=== PATIENT | male | born 1950 | race African-American/Black ===

== ENCOUNTER 2018-02-04 18:42 | Inpatient (IN) ==
[2018-02-04] MEDS ORDERED: ALBUTEROL/IPRATROPIUM 3 ML NEB RESP TX PRN (22:33)
[2018-02-04] MEDS ORDERED: LACTULOSE 20 GM/30 ML UDCUP PO PRN (22:33)
[2018-02-04] MEDS ORDERED: ONDANSETRON 4 MG/2 ML VIAL IV PRN (22:33)
[2018-02-04] MEDS ORDERED: ACETAMINOPHEN 325 MG TABLET PO PRN (22:33)
[2018-02-04] MEDS ORDERED: ZALEPLON 5 MG CAPSULE PO PRN (22:33)
[2018-02-04] MEDS ORDERED: DEXTROSE 50% 25 GM/50 ML VIAL IV PRN (22:33)
[2018-02-04] MEDS ORDERED: MORPHINE 4 MG/1 ML VIAL IV PRN (22:33)
[2018-02-04] MEDS ORDERED: GLUCAGON 1 MG VIAL IM PRN (22:33)
[2018-02-04] MEDS ORDERED: diphenhydrAMINE CAP 25 MG CAPSULE PO PRN (22:33)
[2018-02-04] MEDS ORDERED: SODIUM POLYSTYRENE SULFATE 15 GM/60 ML BOTTLE PO ONE (23:30)
[2018-02-04 23:54] LABS: Basophils # 0.1 10*3/uL (0.0-0.2); Basophils % 0.5 % (0.0-0.8); Eosinophils # 0.2 10*3/uL (0.0-0.87); Eosinophils % 1.8 % (0.00-10.9); Hematocrit 31.1 VOL% (42.0-52.0); Hemoglobin 9.8 GM/DL (14.0-18.0); Immature Granulocytes % 0.3 %; Immature Granulocytes Absolute 0.04 #; Lymphocytes # 1.6 10*3/uL (1.4-4.0); Mean Corpuscular HGB Conc 31.5 GM/DL (32-36); Mean Corpuscular Hemoglobin 29 PG (27-34); Mean Corpuscular Volume 91.5 FL (87-102); Monocytes # 0.9 10*3/uL (0.11-0.8); Monocytes % 7.6 % (1.7-12.7); Neutrophils # 8.8 10*3/uL (1.4-7.4); Neutrophils % 75.8 % (38.7-73.9); Platelet Count 306 T/CUMM (130-400); Red Cell Distribution Width 13.1 % (9.3-17.3); White Blood Count 11.7 T/CUMM (4-12)
[2018-02-05 00:15] LABS: Albumin 3.1 G/DL (3.4-5.0); Bilirubin,Total 0.5 MG/DL (0.2-1.0); Calcium 8.5 MG/DL (8.5-10.1); Total Protein 8.2 G/DL (6.4-8.3)
[2018-02-05 00:16] LABS: Osmolality,Calculated 320.8 MOS/KG (273-304); Potassium 5.2 MMOL/L (3.5-5.1)
[2018-02-05 00:17] LABS: Risk Ratio 3.42; VLDL CHOLESTEROL 14.6 MG/DL
[2018-02-05 00:18] LABS: Troponin I 0.027 NG/ML (0.00-0.045)
[2018-02-05 04:16] LABS: Basophils % 0.3 % (0.0-0.8); Eosinophils # 0.1 10*3/uL (0.0-0.87); Hemoglobin 8.8 GM/DL (14.0-18.0); Immature Granulocytes % 0.3 %; Immature Granulocytes Absolute 0.04 #; Lymphocytes # 0.8 10*3/uL (1.4-4.0); Lymphocytes % 7.1 % (21.2-54.2); Mean Corpuscular HGB Conc 31.4 GM/DL (32-36); Mean Corpuscular Hemoglobin 29 PG (27-34); Mean Corpuscular Volume 91.8 FL (87-102); Mean Platelet Volume 10.1 FL (9.6-12.0); Monocytes # 0.8 10*3/uL (0.11-0.8); Neutrophils # 9.6 10*3/uL (1.4-7.4); Neutrophils % 84.3 % (38.7-73.9); Platelet Count 278 T/CUMM (130-400); Red Blood Count 3.05 MC/CUMM (3.8-5.5); Red Cell Distribution Width 13.2 % (9.3-17.3); White Blood Count 11.5 T/CUMM (4-12)
[2018-02-05 04:42] LABS: Bilirubin,Total 0.7 MG/DL (0.2-1.0); Calcium 8.5 MG/DL (8.5-10.1); Potassium 4.7 MMOL/L (3.5-5.1); Total Protein 7.5 G/DL (6.4-8.3)
[2018-02-05] MEDS ORDERED: LEVOFLOXACIN INJ 750 MG in PREMIX 1 EACH IV SCH ×2 (05:00)
[2018-02-05] MEDS ORDERED: LEVOFLOXACIN INJ 750 MG in PREMIX 1 EACH IV ONE (05:30)
[2018-02-05] MEDS: INSULIN REGULAR 100 UNIT/ML SUBCUT SCH ×4 (05:38→17:55)
[2018-02-05 07:32] LABS: Troponin I 0.038 NG/ML (0.00-0.045)
[2018-02-05] MEDS: PANTOPRAZOLE 40 MG TABLET PO SCH (09:11)
[2018-02-05 09:15] LABS: Hematocrit 30.2 VOL% (42.0-52.0); Hemoglobin 9.7 GM/DL (14.0-18.0)
[2018-02-05 11:50] LABS: Hematocrit 27.7 VOL% (42.0-52.0); Hemoglobin 8.9 GM/DL (14.0-18.0)
[2018-02-05 14:38] LABS: Troponin I 0.029 NG/ML (0.00-0.045)
[2018-02-05 17:22] LABS: Basophils # 0.1 10*3/uL (0.0-0.2); Basophils % 0.2 % (0.0-0.8); Hematocrit 25.8 VOL% (42.0-52.0); Hemoglobin 8.2 GM/DL (14.0-18.0); Immature Granulocytes % 0.6 %; Immature Granulocytes Absolute 0.12 #; Lymphocytes # 0.4 10*3/uL (1.4-4.0); Lymphocytes % 1.7 % (21.2-54.2); Mean Corpuscular HGB Conc 31.8 GM/DL (32-36); Mean Corpuscular Hemoglobin 29 PG (27-34); Mean Corpuscular Volume 91.5 FL (87-102); Mean Platelet Volume 10.3 FL (9.6-12.0); Monocytes # 1.3 10*3/uL (0.11-0.8); Monocytes % 6.5 % (1.7-12.7); Neutrophils # 18.6 10*3/uL (1.4-7.4); Platelet Count 246 T/CUMM (130-400); Red Blood Count 2.82 MC/CUMM (3.8-5.5); Red Cell Distribution Width 13.1 % (9.3-17.3); White Blood Count 20.5 T/CUMM (4-12)
[2018-02-05 17:56] LABS: Anisocytosis 1+; Band Neutrophils 2 % (0-10); Helmet Cells Few; Hypochromasia Slight; Lymphocytes 3 % (20-55); Segmented Neutrophils 89 % (50-85); Total Cells Counted 100
[2018-02-05 17:57] LABS: Giant Platelets Few; Platelet Estimate Adequate
[2018-02-06 00:15] LABS: Apearance,Urine Slightly Hazy (Clear); Bacteria,Urine Many /HPF (Few); Bilirubin,Urine Negative (Negative); Blood, Urine Moderate mg/dL (Negative); Glucose,Urine (UA) 50 mg/dL (Negative); Ketones,Urine Negative (Negative); Nitrite,Urine Negative (Negative); Protein,Urine 100 MG/DL; RBC,Urine 1894 /HPF (0-4); Urine Color Red (Yellow); Urine Urobilinogen < 2.0 EU/DL (0.2-1.0); WBC,Urine 528 /HPF (0-6)
[2018-02-06] MEDS: INSULIN REGULAR 100 UNIT/ML SUBCUT SCH ×4 (00:50→17:40)
[2018-02-06 06:26] LABS: Basophils % 0.2 % (0.0-0.8); Eosinophils # 0.2 10*3/uL (0.0-0.87); Eosinophils % 0.8 % (0.00-10.9); Hematocrit 23.6 VOL% (42.0-52.0); Immature Granulocytes % 0.9 %; Immature Granulocytes Absolute 0.16 #; Lymphocytes # 1.9 10*3/uL (1.4-4.0); Mean Corpuscular HGB Conc 31.4 GM/DL (32-36); Mean Corpuscular Hemoglobin 30 PG (27-34); Mean Platelet Volume 10.5 FL (9.6-12.0); Monocytes # 1.4 10*3/uL (0.11-0.8); Monocytes % 7.7 % (1.7-12.7); Neutrophils % 80.4 % (38.7-73.9); Platelet Count 237 T/CUMM (130-400); Red Blood Count 2.51 MC/CUMM (3.8-5.5); Red Cell Distribution Width 13.2 % (9.3-17.3); White Blood Count 18.6 T/CUMM (4-12)
[2018-02-06 06:39] LABS: Hemoglobin 7.4 GM/DL (14.0-18.0)
[2018-02-06 06:49] LABS: Eosinophils 1 % (0-10); Hypochromasia 1+; Lymphocytes 4 % (20-55); Platelet Estimate Adequate; Segmented Neutrophils 88 % (50-85); Total Cells Counted 100
[2018-02-06 08:17] LABS: Calcium 8.1 MG/DL (8.5-10.1); Potassium 4.1 MMOL/L (3.5-5.1)
[2018-02-06] MEDS: PANTOPRAZOLE 40 MG TABLET PO SCH (08:40)
[2018-02-06] MEDS: NEBIVOLOL 10 MG TABLET PO SCH (08:40)
[2018-02-06] MEDS ORDERED: SODIUM CHLORIDE 0.9% 1,000 ML IV PRN (12:54)
[2018-02-06] MEDS ORDERED: glipiZIDE 10 MG TABLET PO SCH (16:30)
[2018-02-06] MEDS: amLODIPine 5 MG TABLET PO SCH (22:26)
[2018-02-06] MEDS: PRAVASTATIN 40 MG TABLET PO SCH (22:26)
[2018-02-06] MEDS: ASPIRIN EC 81 MG TABLET PO SCH (22:27)
[2018-02-07] MEDS: INSULIN REGULAR 100 UNIT/ML SUBCUT SCH ×4 (02:17→18:26)
[2018-02-07 05:14] LABS: Basophils % 0.3 % (0.0-0.8); Eosinophils # 0.4 10*3/uL (0.0-0.87); Hematocrit 28.3 VOL% (42.0-52.0); Immature Granulocytes % 0.6 %; Immature Granulocytes Absolute 0.08 #; Lymphocytes # 1.5 10*3/uL (1.4-4.0); Mean Corpuscular HGB Conc 31.8 GM/DL (32-36); Mean Corpuscular Hemoglobin 29 PG (27-34); Mean Corpuscular Volume 90.1 FL (87-102); Monocytes # 1.2 10*3/uL (0.11-0.8); Monocytes % 8.8 % (1.7-12.7); Neutrophils # 10.3 10*3/uL (1.4-7.4); Neutrophils % 76.3 % (38.7-73.9); Platelet Count 213 T/CUMM (130-400); Red Blood Count 3.14 MC/CUMM (3.8-5.5); Red Cell Distribution Width 14.4 % (9.3-17.3); White Blood Count 13.5 T/CUMM (4-12)
[2018-02-07 05:32] LABS: Calcium 8.2 MG/DL (8.5-10.1); Osmolality,Calculated 299.5 MOS/KG (273-304); Potassium 3.9 MMOL/L (3.5-5.1)
[2018-02-07] MEDS ORDERED: cefTRIAXone 1,000 MG in SYRINGE 1 EACH IV ONE (07:00)
[2018-02-07] MEDS: PANTOPRAZOLE 40 MG TABLET PO SCH ×2 (07:21→08:53)
[2018-02-07] MEDS: amLODIPine 5 MG TABLET PO SCH ×3 (07:21→20:38)
[2018-02-07] MEDS: NEBIVOLOL 10 MG TABLET PO SCH ×2 (07:21→08:53)
[2018-02-07] MEDS ORDERED: LACTATED RINGERS 1,000 ML IV SCH (08:00)
[2018-02-07] MEDS: LEVOFLOXACIN INJ 500 MG in PREMIX 1 EACH IV SCH (08:53)
[2018-02-07] MEDS ORDERED: fentaNYL 100 MCG/2 ML VIAL ONE (10:01)
[2018-02-07] MEDS ORDERED: PROPOFOL 200 MG/20 ML VIAL IV ONE (10:01)
[2018-02-07] MEDS ORDERED: ETOMIDATE 40 MG/20 ML VIAL IV ONE (10:02)
[2018-02-07] MEDS ORDERED: ONDANSETRON 4 MG/2 ML VIAL ONE (10:02)
[2018-02-07] MEDS ORDERED: MIDAZOLAM 2 MG/2 ML VIAL ONE (10:02)
[2018-02-07] MEDS: INSULIN GLARGINE 100 UNIT/ML SUBCUT SCH (20:37)
[2018-02-07] MEDS: PRAVASTATIN 40 MG TABLET PO SCH (20:38)
[2018-02-07] MEDS: ASPIRIN EC 81 MG TABLET PO SCH (20:38)
[2018-02-08] MEDS: INSULIN REGULAR 100 UNIT/ML SUBCUT SCH ×4 (00:41→18:36)
[2018-02-08 05:34] LABS: Basophils % 0.2 % (0.0-0.8); Eosinophils # 0.3 10*3/uL (0.0-0.87); Eosinophils % 2.1 % (0.00-10.9); Hematocrit 28.2 VOL% (42.0-52.0); Hemoglobin 8.8 GM/DL (14.0-18.0); Immature Granulocytes % 0.6 %; Immature Granulocytes Absolute 0.08 #; Lymphocytes # 1.6 10*3/uL (1.4-4.0); Lymphocytes % 11.3 % (21.2-54.2); Mean Corpuscular HGB Conc 31.2 GM/DL (32-36); Mean Corpuscular Hemoglobin 28 PG (27-34); Mean Corpuscular Volume 89.5 FL (87-102); Mean Platelet Volume 10.3 FL (9.6-12.0); Monocytes # 1.4 10*3/uL (0.11-0.8); Monocytes % 10.4 % (1.7-12.7); Neutrophils # 10.4 10*3/uL (1.4-7.4); Neutrophils % 75.4 % (38.7-73.9); Platelet Count 237 T/CUMM (130-400); Red Blood Count 3.15 MC/CUMM (3.8-5.5); Red Cell Distribution Width 13.8 % (9.3-17.3); White Blood Count 13.8 T/CUMM (4-12)
[2018-02-08 05:49] LABS: Calcium 7.8 MG/DL (8.5-10.1); Osmolality,Calculated 288.7 MOS/KG (273-304); Potassium 3.6 MMOL/L (3.5-5.1)
[2018-02-08] MEDS: amLODIPine 5 MG TABLET PO SCH ×2 (09:25→20:33)
[2018-02-08] MEDS: NEBIVOLOL 10 MG TABLET PO SCH (09:25)
[2018-02-08] MEDS: PANTOPRAZOLE 40 MG TABLET PO SCH (09:25)
[2018-02-08] MEDS: INSULIN GLARGINE 100 UNIT/ML SUBCUT SCH (20:33)
[2018-02-08] MEDS: GABAPENTIN 100 MG CAPSULE PO SCH (20:33)
[2018-02-08] MEDS: ASPIRIN EC 81 MG TABLET PO SCH (20:33)
[2018-02-08] MEDS: PRAVASTATIN 40 MG TABLET PO SCH (20:33)
[2018-02-09] MEDS: INSULIN REGULAR 100 UNIT/ML SUBCUT SCH ×4 (00:34→17:07)
[2018-02-09 04:57] LABS: Basophils # 0.1 10*3/uL (0.0-0.2); Basophils % 0.4 % (0.0-0.8); Eosinophils # 0.6 10*3/uL (0.0-0.87); Eosinophils % 4.3 % (0.00-10.9); Hematocrit 27.7 VOL% (42.0-52.0); Hemoglobin 8.7 GM/DL (14.0-18.0); Immature Granulocytes % 0.5 %; Immature Granulocytes Absolute 0.06 #; Lymphocytes % 15.9 % (21.2-54.2); Mean Corpuscular HGB Conc 31.4 GM/DL (32-36); Mean Corpuscular Hemoglobin 29 PG (27-34); Mean Corpuscular Volume 90.8 FL (87-102); Mean Platelet Volume 10.2 FL (9.6-12.0); Monocytes # 1.6 10*3/uL (0.11-0.8); Monocytes % 12.1 % (1.7-12.7); Neutrophils # 8.6 10*3/uL (1.4-7.4); Neutrophils % 66.8 % (38.7-73.9); Platelet Count 239 T/CUMM (130-400); Red Blood Count 3.05 MC/CUMM (3.8-5.5); Red Cell Distribution Width 13.6 % (9.3-17.3); White Blood Count 12.8 T/CUMM (4-12)
[2018-02-09 05:25] LABS: Calcium 7.7 MG/DL (8.5-10.1); Osmolality,Calculated 289.4 MOS/KG (273-304); Potassium 3.9 MMOL/L (3.5-5.1)
[2018-02-09] MEDS: amLODIPine 5 MG TABLET PO SCH ×2 (09:52→21:39)
[2018-02-09] MEDS: NEBIVOLOL 10 MG TABLET PO SCH (09:52)
[2018-02-09] MEDS: PANTOPRAZOLE 40 MG TABLET PO SCH (09:52)
[2018-02-09] MEDS: LEVOFLOXACIN INJ 500 MG in PREMIX 1 EACH IV SCH (09:52)
[2018-02-09] MEDS: GABAPENTIN 100 MG CAPSULE PO SCH (21:38)
[2018-02-09] MEDS: INSULIN GLARGINE 100 UNIT/ML SUBCUT SCH (21:39)
[2018-02-09] MEDS: PRAVASTATIN 40 MG TABLET PO SCH (21:39)
[2018-02-09] MEDS: ASPIRIN EC 81 MG TABLET PO SCH (21:39)
[2018-02-10] MEDS: INSULIN REGULAR 100 UNIT/ML SUBCUT SCH ×4 (00:31→17:02)
[2018-02-10 05:24] LABS: Basophils % 0.3 % (0.0-0.8); Eosinophils # 0.5 10*3/uL (0.0-0.87); Eosinophils % 4.4 % (0.00-10.9); Hematocrit 26.9 VOL% (42.0-52.0); Hemoglobin 8.4 GM/DL (14.0-18.0); Immature Granulocytes % 0.6 %; Immature Granulocytes Absolute 0.07 #; Lymphocytes # 1.8 10*3/uL (1.4-4.0); Lymphocytes % 14.3 % (21.2-54.2); Mean Corpuscular HGB Conc 31.2 GM/DL (32-36); Mean Corpuscular Hemoglobin 28 PG (27-34); Mean Platelet Volume 10.2 FL (9.6-12.0); Monocytes # 1.6 10*3/uL (0.11-0.8); Neutrophils # 8.3 10*3/uL (1.4-7.4); Neutrophils % 67.4 % (38.7-73.9); Platelet Count 244 T/CUMM (130-400); Red Blood Count 2.99 MC/CUMM (3.8-5.5); Red Cell Distribution Width 13.2 % (9.3-17.3); White Blood Count 12.3 T/CUMM (4-12)
[2018-02-10 05:38] LABS: Calcium 8.1 MG/DL (8.5-10.1); Osmolality,Calculated 285.7 MOS/KG (273-304); Potassium 4.2 MMOL/L (3.5-5.1)
[2018-02-10] MEDS: amLODIPine 5 MG TABLET PO SCH ×2 (08:43→20:55)
[2018-02-10] MEDS: PANTOPRAZOLE 40 MG TABLET PO SCH (08:43)
[2018-02-10] MEDS: NEBIVOLOL 10 MG TABLET PO SCH (08:43)
[2018-02-10] MEDS: PRAVASTATIN 40 MG TABLET PO SCH (20:53)
[2018-02-10] MEDS: GABAPENTIN 100 MG CAPSULE PO SCH (20:53)
[2018-02-10] MEDS: ASPIRIN EC 81 MG TABLET PO SCH (20:55)
[2018-02-10] MEDS: INSULIN GLARGINE 100 UNIT/ML SUBCUT SCH (20:56)
[2018-02-11] MEDS: INSULIN REGULAR 100 UNIT/ML SUBCUT SCH ×4 (00:44→18:10)
[2018-02-11 04:33] LABS: Basophils % 0.4 % (0.0-0.8); Eosinophils # 0.5 10*3/uL (0.0-0.87); Eosinophils % 4.7 % (0.00-10.9); Hematocrit 27.4 VOL% (42.0-52.0); Hemoglobin 8.8 GM/DL (14.0-18.0); Immature Granulocytes % 0.6 %; Immature Granulocytes Absolute 0.06 #; Lymphocytes # 1.6 10*3/uL (1.4-4.0); Lymphocytes % 15.8 % (21.2-54.2); Mean Corpuscular HGB Conc 32.1 GM/DL (32-36); Mean Corpuscular Hemoglobin 29 PG (27-34); Mean Corpuscular Volume 88.7 FL (87-102); Monocytes # 1.3 10*3/uL (0.11-0.8); Monocytes % 12.7 % (1.7-12.7); Neutrophils # 6.5 10*3/uL (1.4-7.4); Neutrophils % 65.8 % (38.7-73.9); Platelet Count 272 T/CUMM (130-400); Red Blood Count 3.09 MC/CUMM (3.8-5.5); Red Cell Distribution Width 13.2 % (9.3-17.3); White Blood Count 9.9 T/CUMM (4-12)
[2018-02-11 05:13] LABS: Calcium 7.5 MG/DL (8.5-10.1); Potassium 3.4 MMOL/L (3.5-5.1)
[2018-02-11] MEDS: NEBIVOLOL 10 MG TABLET PO SCH (09:17)
[2018-02-11] MEDS: amLODIPine 5 MG TABLET PO SCH ×2 (09:17→20:54)
[2018-02-11] MEDS: LEVOFLOXACIN INJ 500 MG in PREMIX 1 EACH IV SCH (09:18)
[2018-02-11] MEDS: POLYETHYLENE GLYCOL POWDER 17 GM PACK PO SCH (09:18)
[2018-02-11] MEDS: PANTOPRAZOLE 40 MG TABLET PO SCH (09:18)
[2018-02-11] MEDS: PRAVASTATIN 40 MG TABLET PO SCH (20:54)
[2018-02-11] MEDS: INSULIN GLARGINE 100 UNIT/ML SUBCUT SCH (20:54)
[2018-02-11] MEDS: GABAPENTIN 100 MG CAPSULE PO SCH (20:54)
[2018-02-11] MEDS: ASPIRIN EC 81 MG TABLET PO SCH (20:54)
[2018-02-11] MEDS: FINASTERIDE 5 MG TABLET PO SCH (20:54)
[2018-02-12] MEDS: INSULIN REGULAR 100 UNIT/ML SUBCUT SCH ×5 (00:56→21:16)
[2018-02-12 05:05] LABS: Basophils % 0.3 % (0.0-0.8); Eosinophils # 0.5 10*3/uL (0.0-0.87); Hematocrit 30.2 VOL% (42.0-52.0); Hemoglobin 9.2 GM/DL (14.0-18.0); Immature Granulocytes % 0.6 %; Immature Granulocytes Absolute 0.07 #; Lymphocytes # 2.1 10*3/uL (1.4-4.0); Mean Corpuscular HGB Conc 30.5 GM/DL (32-36); Mean Corpuscular Hemoglobin 27 PG (27-34); Mean Corpuscular Volume 89.6 FL (87-102); Mean Platelet Volume 9.8 FL (9.6-12.0); Monocytes # 1.3 10*3/uL (0.11-0.8); Monocytes % 10.5 % (1.7-12.7); Neutrophils # 8.4 10*3/uL (1.4-7.4); Neutrophils % 67.6 % (38.7-73.9); Platelet Count 302 T/CUMM (130-400); Red Blood Count 3.37 MC/CUMM (3.8-5.5); Red Cell Distribution Width 13.2 % (9.3-17.3); White Blood Count 12.4 T/CUMM (4-12)
[2018-02-12 05:21] LABS: Calcium 8.3 MG/DL (8.5-10.1); Osmolality,Calculated 286.7 MOS/KG (273-304); Potassium 4.1 MMOL/L (3.5-5.1)
[2018-02-12] MEDS: PANTOPRAZOLE 40 MG TABLET PO SCH (08:01)
[2018-02-12] MEDS: NEBIVOLOL 10 MG TABLET PO SCH (08:01)
[2018-02-12] MEDS: amLODIPine 5 MG TABLET PO SCH ×2 (08:02→21:15)
[2018-02-12] MEDS: POLYETHYLENE GLYCOL POWDER 17 GM PACK PO SCH (08:02)
[2018-02-12] MEDS ORDERED: MAGNESIUM SULF RIDER 4 GM in PREMIX 1 EACH IV PRN (08:05)
[2018-02-12] MEDS ORDERED: MAGNESIUM SULF RIDER 2 GM in PREMIX 1 EACH IV PRN (08:05)
[2018-02-12] MEDS: LEVOFLOXACIN INJ 500 MG in PREMIX 1 EACH IV SCH (08:10)
[2018-02-12] MEDS: GABAPENTIN 100 MG CAPSULE PO SCH (21:14)
[2018-02-12] MEDS: ASPIRIN EC 81 MG TABLET PO SCH (21:15)
[2018-02-12] MEDS: FINASTERIDE 5 MG TABLET PO SCH (21:15)
[2018-02-12] MEDS: PRAVASTATIN 40 MG TABLET PO SCH (21:15)
[2018-02-12] MEDS: INSULIN GLARGINE 100 UNIT/ML SUBCUT SCH (21:15)
[2018-02-13 03:42] LABS: Basophils # 0.1 10*3/uL (0.0-0.2); Basophils % 0.5 % (0.0-0.8); Eosinophils # 0.4 10*3/uL (0.0-0.87); Eosinophils % 3.8 % (0.00-10.9); Hematocrit 28.1 VOL% (42.0-52.0); Hemoglobin 8.7 GM/DL (14.0-18.0); Immature Granulocytes % 0.5 %; Immature Granulocytes Absolute 0.05 #; Lymphocytes # 1.9 10*3/uL (1.4-4.0); Lymphocytes % 17.3 % (21.2-54.2); Mean Corpuscular Hemoglobin 28 PG (27-34); Mean Corpuscular Volume 89.5 FL (87-102); Mean Platelet Volume 9.5 FL (9.6-12.0); Monocytes % 8.6 % (1.7-12.7); Neutrophils # 7.6 10*3/uL (1.4-7.4); Neutrophils % 69.3 % (38.7-73.9); Platelet Count 318 T/CUMM (130-400); Red Blood Count 3.14 MC/CUMM (3.8-5.5); Red Cell Distribution Width 13.2 % (9.3-17.3)
[2018-02-13 04:02] LABS: Calcium 8.1 MG/DL (8.5-10.1); Osmolality,Calculated 286.7 MOS/KG (273-304)
[2018-02-13] MEDS: INSULIN REGULAR 100 UNIT/ML SUBCUT SCH ×4 (08:21→20:47)
[2018-02-13] MEDS: LEVOFLOXACIN INJ 500 MG in PREMIX 1 EACH IV SCH (08:22)
[2018-02-13] MEDS: POLYETHYLENE GLYCOL POWDER 17 GM PACK PO SCH (08:22)
[2018-02-13] MEDS: NEBIVOLOL 10 MG TABLET PO SCH (08:22)
[2018-02-13] MEDS: amLODIPine 5 MG TABLET PO SCH ×2 (08:22→20:48)
[2018-02-13] MEDS: PANTOPRAZOLE 40 MG TABLET PO SCH (08:22)
[2018-02-13] MEDS ORDERED: SODIUM CHLORIDE 0.9% 1,000 ML IV PRN (09:20)
[2018-02-13] MEDS: INSULIN GLARGINE 100 UNIT/ML SUBCUT SCH (20:46)
[2018-02-13] MEDS: GABAPENTIN 100 MG CAPSULE PO SCH (20:47)
[2018-02-13] MEDS: PRAVASTATIN 40 MG TABLET PO SCH (20:48)
[2018-02-13] MEDS: FINASTERIDE 5 MG TABLET PO SCH (20:49)
[2018-02-13 22:42] LABS: Hemoglobin 10.8 GM/DL (14.0-18.0)
[2018-02-14 05:39] LABS: Basophils % 0.3 % (0.0-0.8); Eosinophils # 0.4 10*3/uL (0.0-0.87); Eosinophils % 2.9 % (0.00-10.9); Hematocrit 33.8 VOL% (42.0-52.0); Hemoglobin 10.7 GM/DL (14.0-18.0); Immature Granulocytes % 1.1 %; Immature Granulocytes Absolute 0.13 #; Lymphocytes # 1.8 10*3/uL (1.4-4.0); Lymphocytes % 14.8 % (21.2-54.2); Mean Corpuscular HGB Conc 31.7 GM/DL (32-36); Mean Corpuscular Hemoglobin 28 PG (27-34); Mean Corpuscular Volume 88.5 FL (87-102); Mean Platelet Volume 9.6 FL (9.6-12.0); Monocytes # 0.9 10*3/uL (0.11-0.8); Monocytes % 7.1 % (1.7-12.7); Neutrophils % 73.8 % (38.7-73.9); Platelet Count 327 T/CUMM (130-400); Red Blood Count 3.82 MC/CUMM (3.8-5.5); Red Cell Distribution Width 13.5 % (9.3-17.3); White Blood Count 12.2 T/CUMM (4-12)
[2018-02-14 05:52] LABS: Potassium 4.4 MMOL/L (3.5-5.1)
[2018-02-14] MEDS ORDERED: ceFAZolin 2,000 MG in PREMIX 1 EACH IV ONE (07:00)
[2018-02-14] MEDS: INSULIN REGULAR 100 UNIT/ML SUBCUT SCH ×3 (08:57→17:54)
[2018-02-14] MEDS: LEVOFLOXACIN INJ 500 MG in PREMIX 1 EACH IV SCH (08:57)
[2018-02-14] MEDS: amLODIPine 5 MG TABLET PO SCH (08:57)
[2018-02-14] MEDS: NEBIVOLOL 10 MG TABLET PO SCH (08:57)
[2018-02-14] MEDS: PANTOPRAZOLE 40 MG TABLET PO SCH (08:58)
[2018-02-14] MEDS: POLYETHYLENE GLYCOL POWDER 17 GM PACK PO SCH (08:58)
[2018-02-14] MEDS ORDERED: CLOPIDOGREL 75 MG TABLET PO SCH (09:00)
[2018-02-14 11:34] VITALS: BP 151/75
[2018-02-14] MEDS ORDERED: PRAVASTATIN 40 MG TABLET PO SCH (21:00)
== END 2018-02-14 18:00 | disposition home health service (06) | DRG 682 ==
LOC: N.2E 21:15 → SUATTDRO 21:15
PROVIDERS: ADMIT Internal Medicine; ATTEND Internal Medicine

== ENCOUNTER 2019-06-17 19:22 | Inpatient (IN) ==
[2019-06-17 20:05] LABS: Basophils % 0.5 % (0.0-0.8); Eosinophils # 0.1 10*3/uL (0.0-0.87); Eosinophils % 1.5 % (0.00-10.9); Hemoglobin 12.3 GM/DL (14.0-18.0); Immature Granulocytes % 0.5 %; Immature Granulocytes Absolute 0.04 #; Lymphocytes # 2.3 10*3/uL (1.4-4.0); Lymphocytes % 27.1 % (21.2-54.2); Mean Corpuscular HGB Conc 31.5 GM/DL (32-36); Mean Corpuscular Volume 91.3 FL (87-102); Mean Platelet Volume 9.5 FL (9.6-12.0); Monocytes % 12.1 % (1.7-12.7); Neutrophils % 58.3 % (38.7-73.9); Platelet Count 373 T/CUMM (130-400); Red Blood Count 4.27 MC/CUMM (3.8-5.5); Red Cell Distribution Width 13.3 % (9.3-17.3); White Blood Count 8.4 T/CUMM (4-12)
[2019-06-17 20:19] LABS: Alanine Aminotransferase 23 U/L (16-61); Albumin 2.6 G/DL (3.4-5.0); Alkaline Phosphatase 107 U/L (45-117); Aspartate Amino Transferase 11 U/L (0-37); Bilirubin,Total < 0.39 MG/DL (0.2-1.0); Blood Urea Nitrogen 70 MG/DL (7-18); Calcium 9.4 MG/DL (8.5-10.1); Estimated Glom Filtration Rate 34 ML/MIN; Glucose 256 MG/DL (74-106); Osmolality,Calculated 282.4 MOS/KG (273-304); Total Protein 8.7 G/DL (6.4-8.3)
[2019-06-17] MEDS ORDERED: SODIUM CHLORIDE 0.9% 500 ML IV STA (22:52)
[2019-06-17] MEDS ORDERED: CALCIUM GLUCONATE 1,000 MG in SODIUM CHLORIDE 0.9% 100 ML IV ONE (22:53)
[2019-06-17] MEDS ORDERED: INSULIN REGULAR 100 UNIT/ML IV STA (22:54)
[2019-06-17] MEDS ORDERED: DEXTROSE 50% 25 GM/50 ML VIAL IV STA (22:54)
[2019-06-17] MEDS ORDERED: DEXTROSE 50% 25 GM/50 ML SYRINGE IV ONE (22:58)
[2019-06-17] MEDS ORDERED: CALCIUM GLUCONATE 1,000 MG/10 ML VIAL IV ONE (22:58)
[2019-06-18] MEDS ORDERED: MORPHINE 4 MG/1 ML VIAL IV STA (00:29)
[2019-06-18] MEDS ORDERED: ONDANSETRON 4 MG/2 ML VIAL IV STA (00:29)
[2019-06-18 00:42] LABS: Apearance,Urine CLOUDY (Clear); Bilirubin,Urine Negative (Negative); Blood, Urine Large mg/dL (Negative); Glucose,Urine (UA) 150 mg/dL (Negative); Ketones,Urine Negative (Negative); Nitrite,Urine Negative (Negative); Protein,Urine 100 MG/DL; RBC,Urine 598 /HPF (0-4); Urine Color Yellow (Yellow); Urine Urobilinogen < 2.0 EU/DL (0.2-1.0); WBC,Urine 3853 /HPF (0-6)
[2019-06-18] MEDS ORDERED: ACETAMINOPHEN 325 MG TABLET PO PRN (02:44)
[2019-06-18] MEDS ORDERED: DEXTROSE 50% 25 GM/50 ML SYRINGE IV PRN (02:44)
[2019-06-18] MEDS ORDERED: GLUCAGON 1 MG VIAL IM PRN (02:44)
[2019-06-18] MEDS ORDERED: ONDANSETRON 4 MG/2 ML VIAL IV PRN (02:44)
[2019-06-18] MEDS: cefTRIAXone 1,000 MG in SYRINGE 1 EACH IV SCH (03:15)
[2019-06-18] MEDS: SODIUM CHLORIDE 0.9% 1,000 ML IV SCH ×3 (03:15→22:05)
[2019-06-18] MEDS: MORPHINE 4 MG/1 ML VIAL IV PRN (06:35)
[2019-06-18 06:54] LABS: Basophils % 0.5 % (0.0-0.8); Eosinophils # 0.2 10*3/uL (0.0-0.87); Eosinophils % 2.6 % (0.00-10.9); Hematocrit 35.6 VOL% (42.0-52.0); Hemoglobin 11.5 GM/DL (14.0-18.0); Immature Granulocytes % 0.2 %; Immature Granulocytes Absolute 0.02 #; Lymphocytes # 2.5 10*3/uL (1.4-4.0); Mean Corpuscular HGB Conc 32.3 GM/DL (32-36); Mean Corpuscular Volume 90.1 FL (87-102); Mean Platelet Volume 9.5 FL (9.6-12.0); Monocytes % 11.6 % (1.7-12.7); Neutrophils % 54.1 % (38.7-73.9); Platelet Count 319 T/CUMM (130-400); Red Blood Count 3.95 MC/CUMM (3.8-5.5); Red Cell Distribution Width 13.4 % (9.3-17.3); White Blood Count 8.1 T/CUMM (4-12)
[2019-06-18 07:10] LABS: Alanine Aminotransferase 18 U/L (16-61); Albumin 2.1 G/DL (3.4-5.0); Alkaline Phosphatase 86 U/L (45-117); Aspartate Amino Transferase 9 U/L (0-37); Bilirubin,Total < 0.39 MG/DL (0.2-1.0); Blood Urea Nitrogen 62 MG/DL (7-18); Calcium 8.8 MG/DL (8.5-10.1); Estimated Glom Filtration Rate 40 ML/MIN; Glucose 171 MG/DL (74-106); Osmolality,Calculated 285.5 MOS/KG (273-304); Total Protein 7.3 G/DL (6.4-8.3)
[2019-06-18] MEDS: INSULIN REGULAR 100 UNIT/ML SUBCUT SCH ×4 (09:00→20:58)
[2019-06-18] MEDS: PANTOPRAZOLE 40 MG TABLET PO SCH (09:00)
[2019-06-18 14:52] LABS: Calcium 8.8 MG/DL (8.5-10.1); Osmolality,Calculated 288.5 MOS/KG (273-304)
[2019-06-18] MEDS ORDERED: INSULIN REGULAR 100 UNIT/ML IV ONE (15:00)
[2019-06-18] MEDS ORDERED: DEXTROSE 10% 250 ML BAG IV ONE (15:00)
[2019-06-18] MEDS: SODIUM POLYSTYRENE SULFATE 15 GM/60 ML BOTTLE PO SCH ×2 (15:35→20:58)
[2019-06-18] MEDS: INSULIN ASPART PROTAMINE/ASPART 70/30 100 UNIT/ML SUBCUT SCH (16:34)
[2019-06-18] MEDS: MONTELUKAST 10 MG TABLET PO SCH (20:58)
[2019-06-18] MEDS: TAMSULOSIN 0.4 MG CAPSULE PO SCH (20:58)
[2019-06-18] MEDS: SIMVASTATIN 40 MG TABLET PO SCH (20:58)
[2019-06-19] MEDS: cefTRIAXone 1,000 MG in SYRINGE 1 EACH IV SCH (03:15)
[2019-06-19] MEDS: MORPHINE 4 MG/1 ML VIAL IV PRN ×3 (06:09→22:15)
[2019-06-19 06:28] LABS: Basophils # 0.1 10*3/uL (0.0-0.2); Basophils % 0.6 % (0.0-0.8); Eosinophils # 0.2 10*3/uL (0.0-0.87); Eosinophils % 1.6 % (0.00-10.9); Hemoglobin 12.6 GM/DL (14.0-18.0); Immature Granulocytes % 0.5 %; Immature Granulocytes Absolute 0.05 #; Lymphocytes % 18.6 % (21.2-54.2); Mean Corpuscular HGB Conc 30.7 GM/DL (32-36); Mean Platelet Volume 9.5 FL (9.6-12.0); Monocytes % 10.1 % (1.7-12.7); Neutrophils % 68.6 % (38.7-73.9); Platelet Count 370 T/CUMM (130-400); Red Blood Count 4.36 MC/CUMM (3.8-5.5); Red Cell Distribution Width 13.6 % (9.3-17.3); White Blood Count 10.9 T/CUMM (4-12)
[2019-06-19 06:48] LABS: Calcium 8.9 MG/DL (8.5-10.1); Osmolality,Calculated 288.8 MOS/KG (273-304)
[2019-06-19 08:31] LABS: PT Patient Result 11.2 SECS (9.6-12.2)
[2019-06-19] MEDS ORDERED: MAGNESIUM SULF RIDER 2 GM in PREMIX 1 EACH IV ONE (08:33)
[2019-06-19] MEDS: ESCITALOPRAM 10 MG TABLET PO SCH (08:44)
[2019-06-19] MEDS: FINASTERIDE 5 MG TABLET PO SCH (08:44)
[2019-06-19] MEDS: PANTOPRAZOLE 40 MG TABLET PO SCH (08:44)
[2019-06-19] MEDS: INSULIN ASPART PROTAMINE/ASPART 70/30 100 UNIT/ML SUBCUT SCH ×2 (08:45→17:16)
[2019-06-19] MEDS: traMADol 50 MG TABLET PO PRN ×3 (08:45→21:06)
[2019-06-19] MEDS: busPIRone 5 MG TABLET PO SCH (08:45)
[2019-06-19] MEDS: NEBIVOLOL 10 MG TABLET PO SCH (08:45)
[2019-06-19] MEDS: TAMSULOSIN 0.4 MG CAPSULE PO SCH ×2 (08:46→21:06)
[2019-06-19] MEDS: INSULIN REGULAR 100 UNIT/ML SUBCUT SCH ×4 (08:46→21:07)
[2019-06-19] MEDS: SODIUM POLYSTYRENE SULFATE 15 GM/60 ML BOTTLE PO STA ×2 (09:30→09:40)
[2019-06-19] MEDS: OXYBUTYNIN XL 10 MG TABLET PO SCH (09:40)
[2019-06-19] MEDS: SODIUM CHLORIDE 0.9% 1,000 ML IV SCH ×2 (09:43→20:50)
[2019-06-19] MEDS: CEFEPIME 1,000 MG in SODIUM CHLORIDE 0.9% 100 ML IV SCH ×2 (11:33→18:15)
[2019-06-19] MEDS ORDERED: DIAZEPAM 5 MG TABLET PO ONE (12:15)
[2019-06-19] MEDS: MONTELUKAST 10 MG TABLET PO SCH (21:06)
[2019-06-19] MEDS: SIMVASTATIN 40 MG TABLET PO SCH (21:06)
[2019-06-20] MEDS: CEFEPIME 1,000 MG in SODIUM CHLORIDE 0.9% 100 ML IV SCH ×3 (03:27→18:10)
[2019-06-20] MEDS: SODIUM CHLORIDE 0.9% 1,000 ML IV SCH ×2 (03:29→17:41)
[2019-06-20 05:09] LABS: Calcium 8.7 MG/DL (8.5-10.1); Osmolality,Calculated 284.8 MOS/KG (273-304)
[2019-06-20] MEDS ORDERED: SODIUM POLYSTYRENE SULFATE 15 GM/60 ML BOTTLE PO STA ×2 (06:59→14:21)
[2019-06-20] MEDS: FINASTERIDE 5 MG TABLET PO SCH (09:48)
[2019-06-20] MEDS: ESCITALOPRAM 10 MG TABLET PO SCH (09:48)
[2019-06-20] MEDS: INSULIN REGULAR 100 UNIT/ML SUBCUT SCH ×5 (09:48→20:09)
[2019-06-20] MEDS: NEBIVOLOL 10 MG TABLET PO SCH (09:48)
[2019-06-20] MEDS: INSULIN ASPART PROTAMINE/ASPART 70/30 100 UNIT/ML SUBCUT SCH ×2 (09:48→17:41)
[2019-06-20] MEDS: TAMSULOSIN 0.4 MG CAPSULE PO SCH ×2 (09:48→20:56)
[2019-06-20] MEDS: PANTOPRAZOLE 40 MG TABLET PO SCH (09:48)
[2019-06-20] MEDS: busPIRone 5 MG TABLET PO SCH (09:48)
[2019-06-20] MEDS: OXYBUTYNIN XL 10 MG TABLET PO SCH (10:30)
[2019-06-20] MEDS ORDERED: MAGNESIUM SULF RIDER 2 GM in PREMIX 1 EACH IV ONE (13:21)
[2019-06-20] MEDS: MONTELUKAST 10 MG TABLET PO SCH (20:56)
[2019-06-20] MEDS: SIMVASTATIN 40 MG TABLET PO SCH (20:59)
[2019-06-21] MEDS: CEFEPIME 1,000 MG in SODIUM CHLORIDE 0.9% 100 ML IV SCH ×2 (02:51→10:50)
[2019-06-21 06:42] LABS: Basophils # 0.1 10*3/uL (0.0-0.2); Basophils % 0.5 % (0.0-0.8); Eosinophils # 0.2 10*3/uL (0.0-0.87); Eosinophils % 1.3 % (0.00-10.9); Hematocrit 32.2 VOL% (42.0-52.0); Hemoglobin 9.7 GM/DL (14.0-18.0); Immature Granulocytes % 0.7 %; Immature Granulocytes Absolute 0.09 #; Lymphocytes # 1.8 10*3/uL (1.4-4.0); Lymphocytes % 14.9 % (21.2-54.2); Mean Corpuscular HGB Conc 30.1 GM/DL (32-36); Mean Corpuscular Volume 94.4 FL (87-102); Mean Platelet Volume 9.5 FL (9.6-12.0); Monocytes % 11.6 % (1.7-12.7); Platelet Count 264 T/CUMM (130-400); Red Blood Count 3.41 MC/CUMM (3.8-5.5); Red Cell Distribution Width 13.8 % (9.3-17.3); White Blood Count 12.3 T/CUMM (4-12)
[2019-06-21 06:55] LABS: Calcium 7.9 MG/DL (8.5-10.1)
[2019-06-21] MEDS: INSULIN REGULAR 100 UNIT/ML SUBCUT SCH ×2 (07:44→11:56)
[2019-06-21] MEDS: NEBIVOLOL 10 MG TABLET PO SCH (08:25)
[2019-06-21] MEDS: FINASTERIDE 5 MG TABLET PO SCH (08:25)
[2019-06-21] MEDS: busPIRone 5 MG TABLET PO SCH (08:25)
[2019-06-21] MEDS: TAMSULOSIN 0.4 MG CAPSULE PO SCH (08:26)
[2019-06-21] MEDS: OXYBUTYNIN XL 10 MG TABLET PO SCH (08:26)
[2019-06-21] MEDS: PANTOPRAZOLE 40 MG TABLET PO SCH (08:26)
[2019-06-21] MEDS: ESCITALOPRAM 10 MG TABLET PO SCH (08:26)
[2019-06-21] MEDS: INSULIN ASPART PROTAMINE/ASPART 70/30 100 UNIT/ML SUBCUT SCH (08:27)
[2019-06-21] MEDS ORDERED: MAGNESIUM SULF RIDER 2 GM in PREMIX 1 EACH IV ONE (08:54)
[2019-06-21] MEDS: SODIUM CHLORIDE 0.9% 1,000 ML IV SCH (10:53)
[2019-06-21 12:06] VITALS: BP 165/60
== END 2019-06-21 15:09 | disposition home health service (06) | DRG 683 ==
LOC: N.ED 19:22 → SUATTDRO 06-18 01:13 → N.EDINP 06-18 01:13 → N.5E 06-18 02:07
PROVIDERS: ADMIT Internal Medicine; ATTEND Internal Medicine

== ENCOUNTER 2021-01-31 15:45 | Inpatient (IN) ==
[2021-01-31] MEDS ORDERED: traMADol 50 MG TABLET PO PRN (17:34)
[2021-01-31] MEDS ORDERED: ALBUTEROL 2.5 MG/3 ML NEB RESP TX PRN (17:36)
[2021-01-31] MEDS ORDERED: DEXTROSE 50% 25 GM/50 ML VIAL IV PRN (17:36)
[2021-01-31] MEDS ORDERED: DOCUSATE SODIUM 100 MG CAPSULE PO PRN (17:36)
[2021-01-31] MEDS ORDERED: SIMETHICONE CHEW 125 MG TABLET PO PRN (17:36)
[2021-01-31] MEDS ORDERED: GLUCAGON 1 MG VIAL IM PRN (17:36)
[2021-01-31] MEDS ORDERED: ALUMINUM/MAGNES/SIMETH MAX STR 30 ML UDCUP PO PRN (17:36)
[2021-01-31 17:37] LABS: Basophils % 0.4 % (0.0-0.8); Eosinophils # 0.1 10*3/uL (0.0-0.87); Eosinophils % 0.6 % (0.00-10.9); Hematocrit 37.5 VOL% (42.0-52.0); Hemoglobin 11.6 GM/DL (14.0-18.0); Immature Granulocytes % 0.8 %; Immature Granulocytes Absolute 0.08 #; Lymphocytes # 1.7 10*3/uL (1.4-4.0); Lymphocytes % 17.6 % (21.2-54.2); Mean Corpuscular HGB Conc 30.9 GM/DL (32-36); Mean Corpuscular Volume 93.1 FL (87-102); Mean Platelet Volume 9.1 FL (9.6-12.0); Monocytes % 9.3 % (1.7-12.7); Neutrophils % 71.3 % (38.7-73.9); Platelet Count 334 T/CUMM (130-400); Red Blood Count 4.03 MC/CUMM (3.8-5.5); White Blood Count 9.5 T/CUMM (4-12)
[2021-01-31 17:49] LABS: PT Patient Result 11.6 SECS (10.5-12.0); Partial Thromboplastin Time 28.1 SECS (23.9-33.8)
[2021-01-31 17:58] LABS: Albumin 2.6 G/DL (3.4-5.0); Bilirubin,Total 0.5 MG/DL (0.20-1.00); Calcium 9.2 MG/DL (8.5-10.1); Osmolality,Calculated 308.2 MOS/KG (273-304); Total Protein 7.9 G/DL (6.4-8.2)
[2021-01-31 18:16] LABS: Potassium 7.1 MMOL/L (3.5-5.1)
[2021-01-31] MEDS ORDERED: INSULIN REGULAR 10 UNIT, CALCIUM GLUCONATE 1,000 MG in DEXTROSE 10% 250 ML IV ONE (18:19)
[2021-01-31] MEDS ORDERED: SODIUM POLYSTYRENE SULFATE 15 GM/60 ML BOTTLE PO STA (18:20)
[2021-01-31] MEDS ORDERED: SODIUM BICARBONATE 50 MEQ/50 ML VIAL IV STA (18:20)
[2021-01-31] MEDS: cefTRIAXone 1,000 MG in SODIUM CHLORIDE 0.9% 100 ML IV SCH (18:21)
[2021-01-31 18:30] LABS: Bilirubin,Urine Negative (Negative); Blood, Urine Moderate mg/dL (Negative); Glucose,Urine (UA) Negative (Negative); Ketones,Urine Negative (Negative); Nitrite,Urine Negative (Negative); Protein,Urine 100 MG/DL; RBC,Urine 65 /HPF (0-4); Urine Appearance CLOUDY (Clear); Urine Color Yellow (Yellow); Urine Urobilinogen < 2.0 EU/DL (0.2-1.0)
[2021-01-31] MEDS ORDERED: SODIUM CHLORIDE 0.9% 1,000 ML IV SCH (18:30)
[2021-01-31] MEDS ORDERED: ALBUTEROL 2.5 MG/3 ML NEB RESP TX STA (19:06)
[2021-01-31] MEDS ORDERED: SODIUM ZIRCONIUM CYCLOSILICATE 10 GM PACK PO SCH (21:00)
[2021-01-31] MEDS ORDERED: SODIUM ZIRCONIUM CYCLOSILICATE 10 GM PACK PO ONE (21:45)
[2021-01-31 22:12] LABS: Calcium 9.4 MG/DL (8.5-10.1); Osmolality,Calculated 309.8 MOS/KG (273-304); Potassium 5.1 MMOL/L (3.5-5.1)
[2021-01-31] MEDS: INSULIN LISPRO 100 UNIT/ML SUBCUT SCH (22:19)
[2021-01-31] MEDS: SODIUM BICARB INJ 150 MEQ in STERILE WATER INJ 850 ML IV SCH (22:25)
[2021-01-31] MEDS: SIMVASTATIN 40 MG TABLET PO SCH (22:59)
[2021-01-31] MEDS: FINASTERIDE 5 MG TABLET PO SCH (22:59)
[2021-01-31] MEDS: TAMSULOSIN 0.4 MG CAPSULE PO SCH (22:59)
[2021-01-31 23:49] LABS: Calcium 8.7 MG/DL (8.5-10.1); Osmolality,Calculated 306.1 MOS/KG (273-304); Potassium 4.7 MMOL/L (3.5-5.1)
[2021-02-01 01:36] LABS: Calcium 8.7 MG/DL (8.5-10.1); Potassium 4.6 MMOL/L (3.5-5.1)
[2021-02-01 04:52] LABS: Basophils # 0.1 10*3/uL (0.0-0.2); Basophils % 0.5 % (0.0-0.8); Eosinophils # 0.1 10*3/uL (0.0-0.87); Eosinophils % 0.6 % (0.00-10.9); Hematocrit 35.2 VOL% (42.0-52.0); Hemoglobin 11.1 GM/DL (14.0-18.0); Immature Granulocytes % 0.5 %; Immature Granulocytes Absolute 0.05 #; Lymphocytes # 1.8 10*3/uL (1.4-4.0); Lymphocytes % 16.6 % (21.2-54.2); Mean Corpuscular HGB Conc 31.5 GM/DL (32-36); Mean Corpuscular Volume 93.9 FL (87-102); Mean Platelet Volume 8.9 FL (9.6-12.0); Monocytes % 9.9 % (1.7-12.7); Neutrophils % 71.9 % (38.7-73.9); Platelet Count 339 T/CUMM (130-400); Red Blood Count 3.75 MC/CUMM (3.8-5.5); White Blood Count 10.7 T/CUMM (4-12)
[2021-02-01 05:08] LABS: Calcium 8.8 MG/DL (8.5-10.1); Potassium 4.7 MMOL/L (3.5-5.1)
[2021-02-01 05:19] LABS: Risk Ratio 5.3; Thyroid Stimulating Hormone 2.06 uIU/ml (0.358-3.74); VLDL Cholesterol 21.6 MG/DL
[2021-02-01 05:49] LABS: Hepatitis B Core IgM Quant 0.09 Index; Hepatitis B Surface Ag Quant < 0.10 Index; Hepatitis B Surface Ag Result Non-Reactive (NonReactive); Hepatitis C Virus Ab Quant 0.17 Index; Hepatitis C Virus Ab Result Non-Reactive (NonReactive)
[2021-02-01] MEDS ORDERED: INFLUENZA VIRUS VACCINE 0.5 ML SYRINGE IM ONE (06:20)
[2021-02-01 07:20] LABS: Calcium 8.8 MG/DL (8.5-10.1); Osmolality,Calculated 309.1 MOS/KG (273-304); Potassium 5.4 MMOL/L (3.5-5.1)
[2021-02-01] MEDS: PANTOPRAZOLE 40 MG TABLET PO SCH (08:27)
[2021-02-01] MEDS: amLODIPine 5 MG TABLET PO SCH (08:27)
[2021-02-01] MEDS: INSULIN LISPRO 100 UNIT/ML SUBCUT SCH ×4 (08:28→20:57)
[2021-02-01] MEDS: SODIUM BICARB INJ 150 MEQ in STERILE WATER INJ 850 ML IV SCH ×2 (09:00→18:08)
[2021-02-01] MEDS ORDERED: SODIUM POLYSTYRENE SULFATE 15 GM/60 ML BOTTLE PO ONE (10:58)
[2021-02-01] MEDS ORDERED: LIDOCAINE 2% TOP JELLY 20 ML VIAL INTRAURETH ONE (13:25)
[2021-02-01] MEDS ORDERED: HEPARIN 10,000 UNIT/10 ML VIAL IV PRN (15:08)
[2021-02-01] MEDS ORDERED: MORPHINE 2 MG/1 ML SYRINGE IV ONE (16:59)
[2021-02-01] MEDS: cefTRIAXone 1,000 MG in SODIUM CHLORIDE 0.9% 100 ML IV SCH (18:08)
[2021-02-01 18:37] LABS: Bilirubin,Urine Negative (Negative); Blood, Urine Large mg/dL (Negative); Glucose,Urine (UA) Negative (Negative); Hyaline Casts,Urine 14 /LPF (0-3); Ketones,Urine Negative (Negative); Nitrite,Urine Negative (Negative); Protein,Urine 100 MG/DL; RBC,Urine 193 /HPF (0-4); Urine Appearance CLOUDY (Clear); Urine Color Amber (Yellow); Urine Urobilinogen < 2.0 EU/DL (0.2-1.0)
[2021-02-01] MEDS: FINASTERIDE 5 MG TABLET PO SCH (20:55)
[2021-02-01] MEDS: TAMSULOSIN 0.4 MG CAPSULE PO SCH (20:55)
[2021-02-01] MEDS: SIMVASTATIN 40 MG TABLET PO SCH (20:55)
[2021-02-02] MEDS: SODIUM BICARB INJ 150 MEQ in STERILE WATER INJ 850 ML IV SCH ×3 (01:01→12:19)
[2021-02-02 04:34] LABS: Basophils # 0.1 10*3/uL (0.0-0.2); Basophils % 0.6 % (0.0-0.8); Eosinophils # 0.2 10*3/uL (0.0-0.87); Eosinophils % 2.7 % (0.00-10.9); Hematocrit 33.3 VOL% (42.0-52.0); Hemoglobin 10.6 GM/DL (14.0-18.0); Immature Granulocytes % 0.6 %; Immature Granulocytes Absolute 0.05 #; Lymphocytes # 2.3 10*3/uL (1.4-4.0); Mean Corpuscular HGB Conc 31.8 GM/DL (32-36); Mean Corpuscular Volume 92.5 FL (87-102); Monocytes % 10.7 % (1.7-12.7); Neutrophils % 59.4 % (38.7-73.9); Platelet Count 309 T/CUMM (130-400)
[2021-02-02 04:55] LABS: Albumin 2.1 G/DL (3.4-5.0); Bilirubin,Total 1.1 MG/DL (0.20-1.00); Calcium 8.4 MG/DL (8.5-10.1); Osmolality,Calculated 294.7 MOS/KG (273-304); Total Protein 7.4 G/DL (6.4-8.2)
[2021-02-02 05:05] LABS: Total Protein 7.3 G/DL (6.4-8.2)
[2021-02-02 07:33] LABS: Total Protein (Chem) 7.3 G/DL (6.4-8.3)
[2021-02-02 07:34] LABS: Immunoglobulin A (Chem) 458 MG/DL (70-400); Immunoglobulin G (Chem) 1970 MG/DL (700-1600); Immunoglobulin M (Chem) 91 MG/DL (40-230)
[2021-02-02] MEDS: INSULIN LISPRO 100 UNIT/ML SUBCUT SCH ×4 (08:06→20:31)
[2021-02-02] MEDS: amLODIPine 5 MG TABLET PO SCH (08:09)
[2021-02-02] MEDS: PANTOPRAZOLE 40 MG TABLET PO SCH (08:09)
[2021-02-02 08:34] LABS: Albumin (SPE) 3.1 G/DL (3.2-5.3); Alpha 1 (SPE) 0.3 G/DL (0.1-0.4); Alpha 1 (SPE) Rel % 3.7 %; Alpha 2 (SPE) 0.9 G/DL (0.4-1.0); Beta (SPE) 0.9 G/DL (0.5-1.1); Beta (SPE) Rel % 11.9 %; Gamma (SPE) 2.2 G/DL (0.7-1.7); Gamma (SPE) Rel % 30.4 %
[2021-02-02] MEDS: ONDANSETRON 4 MG/2 ML VIAL IV PRN (10:32)
[2021-02-02] MEDS: hydrALAZINE 20 MG/1 ML VIAL IV PRN (12:18)
[2021-02-02] MEDS ORDERED: PROMETHAZINE 25 MG/1 ML VIAL IM ONE (12:25)
[2021-02-02] MEDS: cefTRIAXone 1,000 MG in SODIUM CHLORIDE 0.9% 100 ML IV SCH (17:09)
[2021-02-02] MEDS: SIMVASTATIN 40 MG TABLET PO SCH (20:31)
[2021-02-02] MEDS: FINASTERIDE 5 MG TABLET PO SCH (20:31)
[2021-02-02] MEDS: TAMSULOSIN 0.4 MG CAPSULE PO SCH (20:31)
[2021-02-03 05:16] LABS: Basophils % 0.2 % (0.0-0.8); Eosinophils % 0.2 % (0.00-10.9); Hematocrit 34.3 VOL% (42.0-52.0); Hemoglobin 10.8 GM/DL (14.0-18.0); Immature Granulocytes % 0.6 %; Immature Granulocytes Absolute 0.07 #; Lymphocytes # 1.7 10*3/uL (1.4-4.0); Lymphocytes % 14.5 % (21.2-54.2); Mean Corpuscular HGB Conc 31.5 GM/DL (32-36); Mean Corpuscular Volume 92.7 FL (87-102); Mean Platelet Volume 9.1 FL (9.6-12.0); Monocytes % 10.1 % (1.7-12.7); Neutrophils % 74.4 % (38.7-73.9); Platelet Count 305 T/CUMM (130-400); Red Cell Distribution Width 14.1 % (9.3-17.3); White Blood Count 11.6 T/CUMM (4-12)
[2021-02-03 05:32] LABS: Parathyroid Hormone Intact 300.2 PG/ML (18.4-80.1)
[2021-02-03 05:33] LABS: Calcium 8.1 MG/DL (8.5-10.1); Osmolality,Calculated 302.7 MOS/KG (273-304); Potassium 3.6 MMOL/L (3.5-5.1)
[2021-02-03] MEDS: ONDANSETRON 4 MG/2 ML VIAL IV PRN (07:05)
[2021-02-03 07:57] LABS: Random Urine Protein (Bench) 235 MG/DL (<11.9)
[2021-02-03] MEDS: INSULIN LISPRO 100 UNIT/ML SUBCUT SCH ×4 (08:57→20:37)
[2021-02-03] MEDS: PANTOPRAZOLE 40 MG TABLET PO SCH (09:59)
[2021-02-03] MEDS: amLODIPine 5 MG TABLET PO SCH (09:59)
[2021-02-03] MEDS: SODIUM BICARB INJ 150 MEQ in STERILE WATER INJ 850 ML IV SCH (10:29)
[2021-02-03] MEDS ORDERED: CLORAZEPATE 3.75 MG TABLET PO PRN (10:48)
[2021-02-03] MEDS: POLYETHYLENE GLYCOL POWDER 17 GM PACK PO SCH (11:06)
[2021-02-03 11:07] LABS: Albumin (UPER) 86.7 MG/DL; Albumin (UPER) Rel% 36.9 %; Alpha 1 (UPER) 13.4 MG/DL; Alpha 1 (UPER) Rel% 5.7 %; Alpha 2 (UPER) 26.8 MG/DL; Alpha 2 (UPER) Rel % 11.4 %; Beta (UPER) 62.3 MG/DL; Beta (UPER) Rel % 26.5 %; Gamma (UPER) 45.8 MG/DL; Gamma (UPER) Rel % 19.5 %
[2021-02-03 12:18] LABS: Immuno Free Light Chain Kappa 16.89 MG/DL (0.33-1.94); Immuno Free Light Chain Lambda 9.82 MG/DL (0.57-2.63); Immuno Free Light Chain Ratio 1.72 MG/DL (0.26-1.65)
[2021-02-03] MEDS: cefTRIAXone 1,000 MG in SODIUM CHLORIDE 0.9% 100 ML IV SCH (18:15)
[2021-02-03] MEDS: SIMVASTATIN 40 MG TABLET PO SCH (20:35)
[2021-02-03] MEDS: TAMSULOSIN 0.4 MG CAPSULE PO SCH (20:36)
[2021-02-03] MEDS: FINASTERIDE 5 MG TABLET PO SCH (20:36)
[2021-02-04 04:47] LABS: Basophils % 0.2 % (0.0-0.8); Eosinophils # 0.1 10*3/uL (0.0-0.87); Eosinophils % 1.1 % (0.00-10.9); Hemoglobin 10.4 GM/DL (14.0-18.0); Immature Granulocytes % 0.7 %; Immature Granulocytes Absolute 0.07 #; Lymphocytes # 2.8 10*3/uL (1.4-4.0); Lymphocytes % 26.8 % (21.2-54.2); Mean Corpuscular HGB Conc 31.5 GM/DL (32-36); Mean Corpuscular Volume 93.2 FL (87-102); Mean Platelet Volume 8.8 FL (9.6-12.0); Monocytes % 9.6 % (1.7-12.7); Neutrophils % 61.6 % (38.7-73.9); Platelet Count 271 T/CUMM (130-400); Red Blood Count 3.54 MC/CUMM (3.8-5.5); Red Cell Distribution Width 13.9 % (9.3-17.3); White Blood Count 10.3 T/CUMM (4-12)
[2021-02-04 05:09] LABS: Osmolality,Calculated 292.7 MOS/KG (273-304)
[2021-02-04] MEDS ORDERED: POTASSIUM CHLORIDE 20 MEQ TABLET PO ONE (07:37)
[2021-02-04] MEDS: SODIUM CHLORIDE 0.9% 1,000 ML IV SCH ×3 (07:57→18:08)
[2021-02-04] MEDS: INSULIN LISPRO 100 UNIT/ML SUBCUT SCH ×4 (08:10→21:10)
[2021-02-04] MEDS: PANTOPRAZOLE 40 MG TABLET PO SCH (08:18)
[2021-02-04] MEDS: amLODIPine 5 MG TABLET PO SCH (08:18)
[2021-02-04] MEDS: POLYETHYLENE GLYCOL POWDER 17 GM PACK PO SCH (08:22)
[2021-02-04] MEDS: cefTRIAXone 1,000 MG in SODIUM CHLORIDE 0.9% 100 ML IV SCH (18:08)
[2021-02-04] MEDS: SIMVASTATIN 40 MG TABLET PO SCH (21:10)
[2021-02-04] MEDS: FINASTERIDE 5 MG TABLET PO SCH (21:10)
[2021-02-04] MEDS: TAMSULOSIN 0.4 MG CAPSULE PO SCH (21:10)
[2021-02-05 06:14] LABS: Basophils # 0.1 10*3/uL (0.0-0.2); Basophils % 0.5 % (0.0-0.8); Eosinophils # 0.4 10*3/uL (0.0-0.87); Eosinophils % 3.7 % (0.00-10.9); Hematocrit 34.5 VOL% (42.0-52.0); Hemoglobin 10.4 GM/DL (14.0-18.0); Immature Granulocytes % 0.6 %; Immature Granulocytes Absolute 0.06 #; Lymphocytes # 2.4 10*3/uL (1.4-4.0); Lymphocytes % 24.8 % (21.2-54.2); Mean Corpuscular HGB Conc 30.1 GM/DL (32-36); Mean Corpuscular Volume 95.8 FL (87-102); Mean Platelet Volume 9.3 FL (9.6-12.0); Monocytes % 10.9 % (1.7-12.7); Neutrophils % 59.5 % (38.7-73.9); Platelet Count 244 T/CUMM (130-400); Red Cell Distribution Width 13.7 % (9.3-17.3); White Blood Count 9.6 T/CUMM (4-12)
[2021-02-05 06:30] LABS: Calcium 7.9 MG/DL (8.5-10.1); Osmolality,Calculated 291.5 MOS/KG (273-304); Potassium 3.3 MMOL/L (3.5-5.1)
[2021-02-05] MEDS: INSULIN LISPRO 100 UNIT/ML SUBCUT SCH ×4 (08:14→20:22)
[2021-02-05] MEDS: amLODIPine 5 MG TABLET PO SCH (09:16)
[2021-02-05] MEDS: PANTOPRAZOLE 40 MG TABLET PO SCH (09:16)
[2021-02-05] MEDS: POLYETHYLENE GLYCOL POWDER 17 GM PACK PO SCH (09:17)
[2021-02-05] MEDS: SODIUM CHLORIDE 0.9% 1,000 ML IV SCH (14:41)
[2021-02-05] MEDS: cefTRIAXone 1,000 MG in SODIUM CHLORIDE 0.9% 100 ML IV SCH (17:11)
[2021-02-05] MEDS: TAMSULOSIN 0.4 MG CAPSULE PO SCH (20:22)
[2021-02-05] MEDS: SIMVASTATIN 40 MG TABLET PO SCH (20:22)
[2021-02-05] MEDS: FINASTERIDE 5 MG TABLET PO SCH (20:22)
[2021-02-05] MEDS: HEPARIN 5,000 UNIT/1 ML VIAL SUBCUT SCH (20:22)
[2021-02-06 05:51] LABS: Basophils % 0.4 % (0.0-0.8); Eosinophils # 0.3 10*3/uL (0.0-0.87); Eosinophils % 3.4 % (0.00-10.9); Hemoglobin 10.5 GM/DL (14.0-18.0); Immature Granulocytes % 0.6 %; Immature Granulocytes Absolute 0.06 #; Lymphocytes # 3.1 10*3/uL (1.4-4.0); Lymphocytes % 30.8 % (21.2-54.2); Mean Corpuscular HGB Conc 30.9 GM/DL (32-36); Mean Corpuscular Volume 95.5 FL (87-102); Mean Platelet Volume 9.3 FL (9.6-12.0); Neutrophils % 55.8 % (38.7-73.9); Platelet Count 232 T/CUMM (130-400); Red Blood Count 3.56 MC/CUMM (3.8-5.5); Red Cell Distribution Width 13.4 % (9.3-17.3); White Blood Count 9.9 T/CUMM (4-12)
[2021-02-06 06:24] LABS: Calcium 7.8 MG/DL (8.5-10.1); Potassium 3.3 MMOL/L (3.5-5.1)
[2021-02-06] MEDS ORDERED: POTASSIUM CHLORIDE 20 MEQ PACK PO ONE (07:47)
[2021-02-06] MEDS: PANTOPRAZOLE 40 MG TABLET PO SCH (08:49)
[2021-02-06] MEDS: POLYETHYLENE GLYCOL POWDER 17 GM PACK PO SCH (08:49)
[2021-02-06] MEDS: amLODIPine 5 MG TABLET PO SCH (08:49)
[2021-02-06] MEDS: INSULIN LISPRO 100 UNIT/ML SUBCUT SCH ×5 (08:49→20:26)
[2021-02-06] MEDS: SODIUM CHLORIDE 0.9% 1,000 ML IV SCH ×2 (08:51→18:40)
[2021-02-06] MEDS: HEPARIN 5,000 UNIT/1 ML VIAL SUBCUT SCH ×2 (09:06→20:25)
[2021-02-06] MEDS ORDERED: MECLIZINE 12.5 MG TABLET PO ONE (11:00)
[2021-02-06] MEDS ORDERED: INSULIN LISPRO 100 UNIT/ML SUBCUT SCH ×2 (16:30)
[2021-02-06] MEDS: cefTRIAXone 1,000 MG in SODIUM CHLORIDE 0.9% 100 ML IV SCH (17:23)
[2021-02-06] MEDS: TAMSULOSIN 0.4 MG CAPSULE PO SCH (20:25)
[2021-02-06] MEDS: FINASTERIDE 5 MG TABLET PO SCH (20:25)
[2021-02-06] MEDS: SIMVASTATIN 40 MG TABLET PO SCH (20:25)
[2021-02-07] MEDS: hydrALAZINE 20 MG/1 ML VIAL IV PRN (05:53)
[2021-02-07] MEDS: ESCITALOPRAM 10 MG TABLET PO SCH (08:47)
[2021-02-07] MEDS: HEPARIN 5,000 UNIT/1 ML VIAL SUBCUT SCH ×2 (08:48→20:40)
[2021-02-07] MEDS: POLYETHYLENE GLYCOL POWDER 17 GM PACK PO SCH (08:48)
[2021-02-07] MEDS: PANTOPRAZOLE 40 MG TABLET PO SCH (08:48)
[2021-02-07] MEDS: amLODIPine 5 MG TABLET PO SCH (08:48)
[2021-02-07] MEDS: INSULIN LISPRO 100 UNIT/ML SUBCUT SCH ×4 (08:49→20:41)
[2021-02-07 09:07] LABS: Osmolality,Calculated 284.7 MOS/KG (273-304); Potassium 3.7 MMOL/L (3.5-5.1)
[2021-02-07] MEDS ORDERED: MAGNESIUM SULF RIDER 2 GM/50 ML PREMIX IV PRN (09:13)
[2021-02-07] MEDS ORDERED: MAGNESIUM SULF RIDER 4 GM/100 ML PREMIX IV PRN (09:13)
[2021-02-07] MEDS: SODIUM CHLORIDE 0.9% 1,000 ML IV SCH (14:35)
[2021-02-07] MEDS: cefTRIAXone 1,000 MG in SODIUM CHLORIDE 0.9% 100 ML IV SCH (17:04)
[2021-02-07] MEDS: SIMVASTATIN 40 MG TABLET PO SCH (20:40)
[2021-02-07] MEDS: TAMSULOSIN 0.4 MG CAPSULE PO SCH (20:40)
[2021-02-07] MEDS: FINASTERIDE 5 MG TABLET PO SCH (20:40)
[2021-02-08] MEDS: hydrALAZINE 20 MG/1 ML VIAL IV PRN (04:36)
[2021-02-08 06:03] LABS: Calcium 7.7 MG/DL (8.5-10.1); Osmolality,Calculated 280.8 MOS/KG (273-304); Potassium 3.1 MMOL/L (3.5-5.1)
[2021-02-08] MEDS: INSULIN LISPRO 100 UNIT/ML SUBCUT SCH ×4 (08:01→23:59)
[2021-02-08] MEDS: amLODIPine 5 MG TABLET PO SCH (09:45)
[2021-02-08] MEDS: HEPARIN 5,000 UNIT/1 ML VIAL SUBCUT SCH ×2 (09:45→21:00)
[2021-02-08] MEDS: PANTOPRAZOLE 40 MG TABLET PO SCH (09:45)
[2021-02-08] MEDS: ESCITALOPRAM 10 MG TABLET PO SCH (09:45)
[2021-02-08] MEDS: POLYETHYLENE GLYCOL POWDER 17 GM PACK PO SCH (10:11)
[2021-02-08] MEDS: SODIUM CHLORIDE 0.9% 1,000 ML IV SCH (11:51)
[2021-02-08] MEDS ORDERED: POTASSIUM CHLORIDE 20 MEQ TABLET PO ONE (15:00)
[2021-02-08] MEDS: SIMVASTATIN 40 MG TABLET PO SCH (20:59)
[2021-02-08] MEDS: FINASTERIDE 5 MG TABLET PO SCH (20:59)
[2021-02-08] MEDS: TAMSULOSIN 0.4 MG CAPSULE PO SCH (20:59)
[2021-02-09 06:04] LABS: Calcium 7.7 MG/DL (8.5-10.1); Osmolality,Calculated 279.8 MOS/KG (273-304); Potassium 3.7 MMOL/L (3.5-5.1)
[2021-02-09] MEDS: ESCITALOPRAM 10 MG TABLET PO SCH (08:44)
[2021-02-09] MEDS: PANTOPRAZOLE 40 MG TABLET PO SCH (08:44)
[2021-02-09] MEDS: amLODIPine 5 MG TABLET PO SCH (08:44)
[2021-02-09] MEDS: POLYETHYLENE GLYCOL POWDER 17 GM PACK PO SCH (08:44)
[2021-02-09] MEDS: HEPARIN 5,000 UNIT/1 ML VIAL SUBCUT SCH ×2 (08:45→21:09)
[2021-02-09] MEDS: SODIUM CHLORIDE 0.9% 1,000 ML IV SCH (08:45)
[2021-02-09] MEDS: INSULIN LISPRO 100 UNIT/ML SUBCUT SCH ×4 (09:04→21:11)
[2021-02-09] MEDS ORDERED: DEXTROSE 50% 25 GM/50 ML VIAL IV PRN (15:28)
[2021-02-09] MEDS: FINASTERIDE 5 MG TABLET PO SCH (21:09)
[2021-02-09] MEDS: SIMVASTATIN 40 MG TABLET PO SCH (21:09)
[2021-02-09] MEDS: TAMSULOSIN 0.4 MG CAPSULE PO SCH (21:09)
[2021-02-10] MEDS: SODIUM CHLORIDE 0.9% 1,000 ML IV SCH (02:15)
[2021-02-10 05:54] LABS: Basophils % 0.4 % (0.0-0.8); Eosinophils # 0.3 10*3/uL (0.0-0.87); Eosinophils % 3.3 % (0.00-10.9); Hematocrit 31.2 VOL% (42.0-52.0); Hemoglobin 9.7 GM/DL (14.0-18.0); Immature Granulocytes % 0.3 %; Immature Granulocytes Absolute 0.03 #; Lymphocytes # 2.7 10*3/uL (1.4-4.0); Lymphocytes % 29.7 % (21.2-54.2); Mean Corpuscular HGB Conc 31.1 GM/DL (32-36); Mean Corpuscular Volume 95.1 FL (87-102); Mean Platelet Volume 10.1 FL (9.6-12.0); Monocytes % 10.1 % (1.7-12.7); Neutrophils % 56.2 % (38.7-73.9); Platelet Count 211 T/CUMM (130-400); Red Blood Count 3.28 MC/CUMM (3.8-5.5); Red Cell Distribution Width 13.6 % (9.3-17.3)
[2021-02-10 06:09] LABS: Potassium 4.4 MMOL/L (3.5-5.1)
[2021-02-10] MEDS: INSULIN LISPRO 100 UNIT/ML SUBCUT SCH ×2 (08:54→10:55)
[2021-02-10] MEDS: PANTOPRAZOLE 40 MG TABLET PO SCH (09:00)
[2021-02-10] MEDS: amLODIPine 5 MG TABLET PO SCH (09:00)
[2021-02-10] MEDS: ESCITALOPRAM 10 MG TABLET PO SCH (09:00)
[2021-02-10] MEDS: HEPARIN 5,000 UNIT/1 ML VIAL SUBCUT SCH (09:00)
[2021-02-10] MEDS: POLYETHYLENE GLYCOL POWDER 17 GM PACK PO SCH (09:01)
[2021-02-10 11:57] VITALS: BP 145/61
== END 2021-02-10 15:13 | disposition home health service (06) | DRG 682 ==
LOC: N.ED 15:45 → SUATTDRO 17:27 → N.EDINP 17:27 → N.ICU 21:08 → N.3E 02-04 16:58
PROVIDERS: ADMIT Internal Medicine; ATTEND Internal Medicine

== ENCOUNTER 2022-05-05 11:36 | Inpatient (IN) ==
[2022-05-05] MEDS ORDERED: SODIUM CHLORIDE 0.9% 500 ML IV STA (11:51)
[2022-05-05 12:23] LABS: Basophils % 0.2 % (0.0-0.8); Eosinophils # 0.4 10*3/uL (0.0-0.87); Eosinophils % 3.4 % (0.00-10.9); Hematocrit 24.2 VOL% (42.0-52.0); Hemoglobin 7.9 GM/DL (14.0-18.0); Immature Granulocytes % 0.4 %; Immature Granulocytes Absolute 0.05 #; Lymphocytes % 16.1 % (21.2-54.2); Mean Corpuscular HGB Conc 32.6 GM/DL (32-36); Mean Corpuscular Volume 85.8 FL (87-102); Mean Platelet Volume 9.7 FL (9.6-12.0); Monocytes # 0.8 10*3/uL (0.11-0.8); Monocytes % 6.5 % (1.7-12.7); Neutrophils % 73.4 % (38.7-73.9); Platelet Count 265 T/CUMM (130-400); Red Blood Count 2.82 MC/CUMM (3.8-5.5); Red Cell Distribution Width 12.7 % (9.3-17.3); White Blood Count 12.3 T/CUMM (4-12)
[2022-05-05] MEDS ORDERED: SODIUM CHLORIDE 0.9% 1,000 ML IV PRN ×2 (12:38→17:38)
[2022-05-05 12:46] LABS: Albumin 2.5 G/DL (3.4-5.0); Bilirubin,Total 0.4 MG/DL (0.20-1.00); Calcium 7.5 MG/DL (8.5-10.1); Osmolality,Calculated 276.9 MOS/KG (273-304); Total Protein 7.1 G/DL (6.4-8.2)
[2022-05-05 12:49] LABS: Amorphous Crystals,Urine Occasional /HPF (Few); RBC,Urine 16 /HPF (0-4)
[2022-05-05 12:51] LABS: Glucose,Urine (UA) Negative (Negative); Protein,Urine 100 mg/dL (Negative); Urine Appearance Cloudy (Clear); Urine Color Yellow (Yellow); Urine pH 5.5 (4.5-8.0)
[2022-05-05 12:52] LABS: Bilirubin,Urine Negative (Negative); Blood, Urine Moderate mg/dL (Negative); Ketones,Urine Negative (Negative); Nitrite,Urine Negative (Negative); Urine Urobilinogen 0.2 eU/dL (<2.0)
[2022-05-05] MEDS ORDERED: PIPERACILLIN/TAZOBACTAM 3,375 MG in SODIUM CHLORIDE 0.9% 100 ML IV STA (12:53)
[2022-05-05] MEDS ORDERED: DOCUSATE SODIUM 100 MG CAPSULE PO PRN (13:18)
[2022-05-05] MEDS ORDERED: ONDANSETRON 4 MG/2 ML VIAL IV PRN (13:18)
[2022-05-05] MEDS ORDERED: ACETAMINOPHEN 325 MG TABLET PO PRN (13:18)
[2022-05-05] MEDS ORDERED: DOCUSATE/SENNA 50-8.6 MG TABLET PO PRN (15:58)
[2022-05-05] MEDS ORDERED: DEXTROSE 10% 250 ML BAG IV PRN (15:59)
[2022-05-05] MEDS ORDERED: GLUCAGON 1 MG VIAL IM PRN (15:59)
[2022-05-05] MEDS ORDERED: SIMETHICONE CHEW 125 MG TABLET PO PRN (16:04)
[2022-05-05] MEDS ORDERED: MECLIZINE 25 MG TABLET PO PRN (16:04)
[2022-05-05] MEDS: INSULIN LISPRO 100 UNIT/ML SUBCUT SCH ×2 (17:19→21:50)
[2022-05-05] MEDS: SODIUM CHLORIDE 0.9% 1,000 ML IV SCH ×2 (17:19→22:05)
[2022-05-05] MEDS: carvediloL 6.25 MG TABLET PO SCH (19:25)
[2022-05-05] MEDS: ATORVASTATIN 20 MG TABLET PO SCH (21:57)
[2022-05-05] MEDS: MONTELUKAST 10 MG TABLET PO SCH (21:58)
[2022-05-05] MEDS: hydrALAZINE 10 MG TABLET PO SCH (21:59)
[2022-05-06] MEDS: SODIUM CHLORIDE 0.9% 1,000 ML IV SCH (05:42)
[2022-05-06 08:29] LABS: Basophils % 0.3 % (0.0-0.8); Eosinophils # 0.2 10*3/uL (0.0-0.87); Eosinophils % 1.4 % (0.00-10.9); Hematocrit 28.4 VOL% (42.0-52.0); Hemoglobin 9.3 GM/DL (14.0-18.0); Immature Granulocytes % 0.5 %; Immature Granulocytes Absolute 0.06 #; Lymphocytes # 1.6 10*3/uL (1.4-4.0); Mean Corpuscular HGB Conc 32.7 GM/DL (32-36); Mean Platelet Volume 9.5 FL (9.6-12.0); Monocytes # 0.7 10*3/uL (0.11-0.8); Monocytes % 5.8 % (1.7-12.7); Platelet Count 247 T/CUMM (130-400); Red Blood Count 3.34 MC/CUMM (3.8-5.5); Red Cell Distribution Width 12.7 % (9.3-17.3); White Blood Count 12.5 T/CUMM (4-12)
[2022-05-06] MEDS: INSULIN LISPRO 100 UNIT/ML SUBCUT SCH ×4 (08:45→21:14)
[2022-05-06] MEDS: POLYETHYLENE GLYCOL POWDER 17 GM PACK PO SCH (08:45)
[2022-05-06 08:49] LABS: Calcium 7.2 MG/DL (8.5-10.1); Osmolality,Calculated 275.1 MOS/KG (273-304); Potassium 5.1 MMOL/L (3.5-5.1)
[2022-05-06] MEDS: carvediloL 6.25 MG TABLET PO SCH ×2 (09:02→17:29)
[2022-05-06] MEDS: ESCITALOPRAM 10 MG TABLET PO SCH (09:02)
[2022-05-06] MEDS: FINASTERIDE 5 MG TABLET PO SCH (09:02)
[2022-05-06] MEDS: amLODIPine 10 MG TABLET PO SCH (09:02)
[2022-05-06] MEDS: hydrALAZINE 10 MG TABLET PO SCH ×3 (09:03→21:15)
[2022-05-06] MEDS: cefTRIAXone 2,000 MG in SODIUM CHLORIDE 0.9% 100 ML IV SCH (09:03)
[2022-05-06] MEDS: ATORVASTATIN 20 MG TABLET PO SCH ×2 (21:10→21:15)
[2022-05-06] MEDS: MONTELUKAST 10 MG TABLET PO SCH ×2 (21:10→21:16)
[2022-05-06] MEDS: ZINC OXIDE 16% PASTE 57 GM TUBE TOP SCH (21:10)
[2022-05-07] MEDS: SODIUM CHLORIDE 0.9% 1,000 ML IV SCH (01:44)
[2022-05-07] MEDS ORDERED: HEPARIN 5,000 UNIT/1 ML VIAL SUBCUT SCH (08:00)
[2022-05-07] MEDS: INSULIN LISPRO 100 UNIT/ML SUBCUT SCH ×4 (08:04→21:36)
[2022-05-07] MEDS: POLYETHYLENE GLYCOL POWDER 17 GM PACK PO SCH (08:04)
[2022-05-07] MEDS: FINASTERIDE 5 MG TABLET PO SCH (08:07)
[2022-05-07] MEDS: hydrALAZINE 10 MG TABLET PO SCH ×2 (08:07→21:34)
[2022-05-07] MEDS: ESCITALOPRAM 10 MG TABLET PO SCH (08:07)
[2022-05-07] MEDS: amLODIPine 10 MG TABLET PO SCH (08:08)
[2022-05-07] MEDS: carvediloL 6.25 MG TABLET PO SCH ×2 (08:08→17:40)
[2022-05-07] MEDS: cefTRIAXone 2,000 MG in SODIUM CHLORIDE 0.9% 100 ML IV SCH (08:08)
[2022-05-07 08:09] LABS: Basophils # 0.1 10*3/uL (0.0-0.2); Basophils % 0.5 % (0.0-0.8); Eosinophils # 0.3 10*3/uL (0.0-0.87); Eosinophils % 2.3 % (0.00-10.9); Hematocrit 29.9 VOL% (42.0-52.0); Immature Granulocytes % 0.6 %; Immature Granulocytes Absolute 0.08 #; Lymphocytes # 1.5 10*3/uL (1.4-4.0); Mean Corpuscular HGB Conc 33.4 GM/DL (32-36); Mean Corpuscular Volume 84.7 FL (87-102); Monocytes # 0.8 10*3/uL (0.11-0.8); Monocytes % 6.2 % (1.7-12.7); Neutrophils % 78.4 % (38.7-73.9); Platelet Count 256 T/CUMM (130-400); Red Blood Count 3.53 MC/CUMM (3.8-5.5); Red Cell Distribution Width 12.8 % (9.3-17.3); White Blood Count 12.3 T/CUMM (4-12)
[2022-05-07] MEDS: SODIUM BICARBONATE 650 MG TABLET PO SCH ×2 (08:09→21:35)
[2022-05-07 08:37] LABS: Calcium 7.4 MG/DL (8.5-10.1); Osmolality,Calculated 285.5 MOS/KG (273-304); Potassium 4.2 MMOL/L (3.5-5.1)
[2022-05-07 08:44] LABS: % Iron Saturation 22.7 % (18-50); Ferritin 342.7 ng/mL (26-388)
[2022-05-07] MEDS: ZINC OXIDE 16% PASTE 57 GM TUBE TOP SCH ×2 (09:19→21:35)
[2022-05-07] MEDS ORDERED: VANCOMYCIN INJ 1,750 MG in SODIUM CHLORIDE 0.9% 250 ML IV ONE (12:02)
[2022-05-07] MEDS ORDERED: VANCOMYCIN INJ 2,000 MG in SODIUM CHLORIDE 0.9% 500 ML IV ONE (14:00)
[2022-05-07] MEDS: ATORVASTATIN 20 MG TABLET PO SCH (21:34)
[2022-05-07] MEDS: MONTELUKAST 10 MG TABLET PO SCH (21:34)
[2022-05-07] MEDS: FERROUS SULFATE 325 MG TABLET PO SCH (21:35)
[2022-05-08] MEDS: POLYETHYLENE GLYCOL POWDER 17 GM PACK PO SCH (08:53)
[2022-05-08] MEDS: INSULIN LISPRO 100 UNIT/ML SUBCUT SCH ×2 (08:53→13:05)
[2022-05-08] MEDS: FINASTERIDE 5 MG TABLET PO SCH (08:54)
[2022-05-08] MEDS: hydrALAZINE 10 MG TABLET PO SCH (08:54)
[2022-05-08] MEDS: FERROUS SULFATE 325 MG TABLET PO SCH (08:55)
[2022-05-08] MEDS: amLODIPine 10 MG TABLET PO SCH (08:55)
[2022-05-08] MEDS: SODIUM BICARBONATE 650 MG TABLET PO SCH (08:55)
[2022-05-08] MEDS: ESCITALOPRAM 10 MG TABLET PO SCH (08:55)
[2022-05-08] MEDS: carvediloL 6.25 MG TABLET PO SCH (08:56)
[2022-05-08] MEDS: ZINC OXIDE 16% PASTE 57 GM TUBE TOP SCH (08:59)
[2022-05-08] MEDS ORDERED: VANCOMYCIN INJ 1,000 MG in SODIUM CHLORIDE 0.9% 250 ML IV PRN (12:30)
[2022-05-08 13:29] VITALS: BP 118/51
[2022-05-08] MEDS ORDERED: VANCOMYCIN INJ 1,500 MG in SODIUM CHLORIDE 0.9% 500 ML IV ONE (21:00)
== END 2022-05-08 15:46 | disposition hospice, home (50) | DRG 698 ==
LOC: N.ED 11:36 → N.EDINP 11:36 → N.2W 15:16
PROVIDERS: ADMIT Hospitalist; ATTEND Hospitalist